=== PATIENT | male | born 1985 | race Two or more races ===

== ENCOUNTER 2023-10-24 02:42 | Emergency (ER) | payer OTHER ==
[~2023-10-24] VITALS: Ht 177.8 cm; Wt 79.5 kg
[2023-10-24 02:46] VITALS: BP 132/83; PULSE 65; RESP 17; TEMP 97.9
== END 2023-10-24 03:28 | disposition home or self-care (01) ==
LOC: EMS 02:44
DX: S01.81XA Laceration without foreign body of other part of head, initial encounter (principal); Z98.890 Other specified postprocedural states; W19.XXXA Unspecified fall, initial encounter; Y93.89 Activity, other specified; Y92.89 Other specified places as the place of occurrence of the external cause; Y99.8 Other external cause status
CPT/HCPCS: 12014; 99282; Z7502